=== PATIENT | female | born 1995 | race African-American/Black ===

== ENCOUNTER 2018-09-13 15:42 | Observation (INO) | payer MEDICAID ==
[~2018-09-13] VITALS: Ht 157.5 cm; Wt 64.9 kg
[~2018-09-13 15:42] MED LIST: ALBU2.5V13 NEB; PREN-88 PO
[2018-09-13] MEDS ORDERED: DEXT 5%/LACTATED RINGERS 1,000 ML IV PRN (16:15)
== END 2018-09-13 17:49 | disposition home or self-care (01) ==
LOC: 8 EST LDRP 15:42
PROVIDERS: ADMIT Obstetrics & Gynecology; ATTEND Obstetrics & Gynecology
DX: O62.9 Abnormality of forces of labor, unspecified (principal); O99.89 Other specified diseases and conditions complicating pregnancy, childbirth and the puerperium; M54.9 Dorsalgia, unspecified; Z3A.39 39 weeks gestation of pregnancy
CPT/HCPCS: 99281; G0378; 96360